=== PATIENT | female | born 1995 | race Caucasian/White ===

== ENCOUNTER 2016-12-01 14:24 | Emergency (ER) | payer BC ==
[~2016-12-01] VITALS: Ht 170.2 cm; Wt 77.2 kg
[2016-12-01 14:41] VITALS: TEMP 36.6; Ht 170.2 cm; Wt 77.2 kg
[2016-12-01] MEDS ORDERED: IUD'IUD INT UTER (14:57)
[2016-12-01] MEDS ORDERED: SODIUM CHLORIDE 0.9% 1000ML 1,000 ML IV STA (15:18)
[2016-12-01 15:56] LABS: BASO % 0.3 %; BASO ABS # 0.02 K/uL (0-0.2); COMPLETE YES; EOS % 3.1 %; HEMATOCRIT 38.2 % (37-47); IG% 0.2 %; LYMPH % 22.1 %; LYMPH ABS # 1.28 K/uL (1.2-3.4); MEAN CELL VOLUME 88.4 fL (80-100); MEAN CORPUSCULAR HEMOGLOBIN 31.3 pg (25-34); MEAN CORPUSCULAR HGB CONC 35.3 g/dl (32-36); MEAN PLATELET VOLUME 10.5 fL (7.4-10.4); MONO % 7.9 %; NEUT % 66.4 %; PLATELET COUNT 218 K/uL (130-400); RED BLOOD COUNT 4.32 M/uL (4.2-5.4); WHITE BLOOD COUNT 5.79 K/uL (4.8-10.8)
[2016-12-01 16:04] LABS: URINE APPEARANCE CLEAR (CLEAR); URINE BILIRUBIN NEG (NEG); URINE COLOR YELLOW; URINE NITRITE NEG (NEG); URINE PH 5.5 (4.5-7.5); URINE SPECIFIC GRAVITY 1.019 (1.000-1.030); UROBILINOGEN NEG (NEG)
[2016-12-01 16:12] LABS: MANUAL MICROSCOPIC REQUIRED? NO; REVIEW REQ? NO
[2016-12-01 16:14] LABS: ALT/SGPT 26 U/L (12-78); AST/SGOT 16 U/L (15-37); BLOOD UREA NITROGEN 12 mg/dl (7-18); CALCIUM 8.9 mg/dl (8.5-10.1); CARBON DIOXIDE 27 mmol/L (21-32); CHLORIDE 106 mmol/L (98-107); CREATININE 0.52 mg/dl (0.60-1.20); GLUCOSE 91 mg/dl (70-99); POTASSIUM 3.9 mmol/L (3.5-5.1); SODIUM 141 mmol/L (136-145)
[2016-12-01 16:17] LABS: ALKALINE PHOSPHATASE 48 U/L (45-117)
--- NOTE | 2016-12-01 17:19 | DIAGNOSTIC IMAGING REPORT ---
EXAMINATION: PELVIC ULTRASOUND (transabdominal and endovaginal scanning) CLINICAL HISTORY: Pelvic pain COMPARISON STUDY: None FINDINGS: The uterus measured 6.0 x 3.7 x 5.4 cm. The endometrial stripe measured 3 mm. An IUD is visualized within the endometrium.. The right ovary measured 41 x 20 x 21 mm. The left ovary measured 37 x 19 x 25 mm.. There is no ultrasonographic evidence of ovarian torsion. It should be noted that ovarian torsion can be present with normal Doppler ultrasonographic findings. There is trace free pelvic fluid, likely physiologic. IMPRESSION: Indwelling IUD. No abnormalities identified. Electronically signed by: Ady De Leon M.D. 12/01/2016 5:18 PM Dictated Date/Time: 12/01/2016 5:16 PM
[2016-12-01 18:14] VITALS: BP 110/72; PULSE 78; O2SAT 98
--- NOTE | 2016-12-02 10:38 | EMERGENCY ROOM VISIT NOTE ---
ED Visit Note First contact with patient: 15:02 Chief Complaint: I think my IUD may have moved. History of Present Illness: Ms. Ayala is a 21-year-old white female who ambulates into the ED accompanied by female friend complaining of pelvic pain. Historically patient reports she had an IUD placed in February and has had no complications. She is sexually active. Additionally she does report she was seen by her advertising photographer less than a month ago for her annual physical examination and reports "everything was normal." Patient reports last evening she started experiencing some mild crampiness sensation in her lower abdomen in the suprapubic area. Her discomfort was intermittent and mild. Then after waking this morning the cramping returned and became constant. Currently she rates her discomfort 5/10. Her pain is nonradiating. She has not identified any aggravating or alleviating factors related to the pain. She does report she used ibuprofen with mild relief of her discomfort. She denies any associated symptoms including fevers, chills, sweats, skin eruptions, skin color changes, upper respiratory tract symptoms, upper abdominal pain, nausea, vomiting, decreased appetite, vaginal bleeding, vaginal discharge, painful intercourse, postcoital bleeding, diarrhea, constipation, urinary symptoms, hematuria. Review of Systems: As noted above in history of present illness. All body systems were reviewed and found to be negative as noted above. Past Medical History: Status post tonsillectomy. Current Medications: control, IUD. Allergies to Medications: Patient denies. Social History: Patient is currently employed; she feels safe in her home environment; she denies tobacco use and admits to alcohol use. Physical Examination: Vital Signs: Date Time Temp Pulse Resp B/P (MAP) Pulse Ox O2 Delivery O2 Flow Rate FiO2 12/01/16 18:14 78 16 10/72 98 12/01/16 16:15 75 12/01/16 14:41 36.6 77 18 122/74 99 Room Air GENERAL: 21-year-old female in mild distress due to pain, nontoxic-appearing, afebrile and hemodynamically stable. NEUROLOGICAL: Awake, alert and oriented to person, place and time. Answering questions appropriately and following commands. Normal gait. Good hand eye coordination. No focal motor sensory deficits. SKIN: Warm, dry and pink. No soft tissue eruptions or trauma noted. HEENT: Atraumatic and normocephalic. PERRLA. Sclera white and conjunctiva pink. No drainage from naris. Oral cavity moist and pink. Pharynx is nonerythematous or edematous. Speech normal. No lymphadenopathy. Trachea midline. No jugular venous distention. BACK: No tenderness over the bony spine. No CVA tenderness. THORAX: Lungs sounds are clear to auscultation and equal bilaterally with symmetrical chest wall. No wheezing, rales or rhonchi. No crepitus, tenderness , subcutaneous air or deformities noted. HEART: Regular rate and rhythm. No gallops, rubs or murmurs are appreciated. ABDOMEN: Flat, soft and nontender. Positive bowel sounds in all quadrants. No guarding, rigidity or organomegaly. EXTREMITIES: Moves all extremities well on command and with purpose. All distal neurovascular statuses are intact and equal bilaterally. ED Course: Patient is assessed as noted above. Patient's medication list was reviewed. Laboratory Testing: Test 12/01/16 15:40 12/01/16 15:45 Range/Units White Blood Count 5.79 4.8-10.8 K/uL Red Blood Count 4.32 4.2-5.4 M/uL Hemoglobin 13.5 12.0-16.0 g/dL Hematocrit 38.2 37-47 % Mean Corpuscular Volume 88.4 80-100 fL Mean Corpuscular Hemoglobin 31.3 25-34 pg Mean Corpuscular Hemoglobin Concent 35.3 32-36 g/dl Platelet Count 218 130-400 K/uL Mean Platelet Volume 10.5 7.4-10.4 fL Neutrophils (%) (Auto) 66.4 % Lymphocytes (%) (Auto) 22.1 % Monocytes (%) (Auto) 7.9 % Eosinophils (%) (Auto) 3.1 % Basophils (%) (Auto) 0.3 % Neutrophils # (Auto) 3.84 1.4-6.5 K/uL Lymphocytes # (Auto) 1.28 1.2-3.4 K/uL Monocytes # (Auto) 0.46 0.11-0.59 K/uL Eosinophils # (Auto) 0.18 0-0.5 K/uL Basophils # (Auto) 0.02 0-0.2 K/uL RDW Standard Deviation 40.6 36.4-46.3 fL RDW Coefficient of Variation 12.5 11.5-14.5 % Immature Granulocyte % (Auto) 0.2 % Immature Granulocyte # (Auto) 0.01 0.00-0.02 K/uL Sodium Level 141 136-145 mmol/L Potassium Level 3.9 3.5-5.1 mmol/L Chloride Level 106 98-107 mmol/L Carbon Dioxide Level 27 21-32 mmol/L Anion Gap 8.0 3-11 mmol/L Blood Urea Nitrogen 12 7-18 mg/dl Creatinine 0.52 0.60-1.20 mg/dl Est Creatinine Clear Calc Drug Dose 180.2 ml/min Estimated GFR () > 150.0 Estimated GFR (Non- 134.7 BUN/Creatinine Ratio 23.0 10-20 Random Glucose 91 70-99 mg/dl Calcium Level 8.9 8.5-10.1 mg/dl Total Bilirubin 0.7 0.2-1 mg/dl Direct Bilirubin 0.2 0-0.2 mg/dl Aspartate Amino Transf (AST/SGOT) 16 15-37 U/L Alanine Aminotransferase (ALT/SGPT) 26 12-78 U/L Alkaline Phosphatase 48 45-117 U/L Total Protein 7.4 6.4-8.2 gm/dl Albumin 4.2 3.4-5.0 gm/dl Urine Color YELLOW Urine Appearance CLEAR CLEAR Urine pH 5.5 4.5-7.5 Urine Specific [place] 1.019 1.000-1.030 Urine Protein NEG NEG Urine Glucose (UA) NEG NEG Urine Ketones NEG NEG Urine Occult Blood NEG NEG Urine Nitrite NEG NEG Urine Bilirubin NEG NEG Urine Urobilinogen NEG NEG Urine Leukocyte Esterase NEG NEG Urine Test NEG NEG Pelvic Ultrasound: Was reviewed by myself and read by the radiology showing no pelvic abnormalities and an inner dwelling IUD in place. Patient was hydrated with normal saline; she was offered pain medications and refused. Patient was reassessed multiple times during her stay in the emergency department. Patient did discuss possible pelvic infections and she did not have a concern for this and did not feel a pelvic exam was necessary at this time because of her recent gynecological visit. Patient's case was reviewed with Dr. Gardner; we agreed on diagnostic approach, treatment, disposition and plan. Patient was educated about today's findings and instructed on her treatment plan ; she verbalized understanding and agreement with this plan. Clinical Impression: Acute pelvic pain. Decision-Making: Initially my differential diagnosis I considered urinary tract infection, PID, ectopic or early , ovarian torsion, ovarian cyst rupture and other causes. Disposition: Patient discharged home in stable condition; prior to departure she was reassessed and subjectively reported she was pain and symptom-free. Plan: Patient was encouraged to use ibuprofen or acetaminophen as needed for pain. Patient was encouraged to follow-up with her advertising photographer for follow-up care. Patient is encouraged return ED for worsening pain, fevers, vaginal discharge, vaginal bleeding or any new/concerning symptoms.
== END 2016-12-01 18:15 | disposition home or self-care (01) ==
LOC: C.EDB 14:27 → C.EDD 18:15
DX: R10.2 Pelvic and perineal pain (principal)